=== PATIENT | female | born 1960 | race Caucasian/White ===

== ENCOUNTER 2017-03-18 18:04 | Emergency (ER) | payer MEDICARE, OTHER ==
[~2017-03-18] VITALS: Ht 167.6 cm; Wt 59.0 kg
[~2017-03-18 18:04] MED LIST: LORA1TAB82 PO; MECL-102 PO
[2017-03-18] MEDS ORDERED: IV NS 0.9% 1,000 ML ONE (18:17)
--- NOTE | 2017-03-18 18:26 | NUR ---
[address]IBRA [address] DUE TO ETOH-- PATIENT IS AAO3, APPEARS IN NO APPARENT DISTRESS, RESPIRATION EVEN AND UNLABORED. NO SOB. SKIN IS WARM TO TOUCH AND NON DIAPHORETIC. AFEBRILE. VSS.
--- NOTE | 2017-03-18 18:27 | NUR ---
IV ACCESSED TO LAC 20. BLOOD SAMPLE SENT TO LAB
[2017-03-18] MEDS ORDERED: IV NS 0.9% 1,000 ML BAG IV ONE (18:30)
[2017-03-18 18:42] LABS: BASOPHILS # (AUTO) 0.1 /CMM (0.0-0.2); BASOPHILS % (AUTO) 1.3 % (0.0-2.0); EOSINOPHILS # (AUTO) 0.4 /CMM (0.0-0.7); EOSINOPHILS % (AUTO) 8.1 % (0.0-6.0); HEMATOCRIT 42 % (33-45); HEMOGLOBIN 14.3 g/dL (11.5-14.8); LYMPHOCYTES # (AUTO) 2.1 /CMM (0.8-4.8); LYMPHOCYTES % (AUTO) 37.4 % (20.0-44.0); MEAN CORPUSCULAR HEMOGLOBIN 37 PG (26.0-33.0); MEAN CORPUSCULAR HGB CONC 34 g/dl (31.0-36.0); MEAN CORPUSCULAR VOLUME 107 fL (82-100); MONOCYTES # (AUTO) 0.4 /CMM (0.1-1.30); NEUTROPHILS # (AUTO) 2.5 /CMM (1.8-8.9); NEUTROPHILS % (AUTO) 45.2 % (43.0-81.0); PLATELET COUNT (AUTO) 184 /CMM (150-450); RDW COEFFICIENT OF VARIATION 12.5 (11.5-15.0); RED BLOOD CELL COUNT(AUTO) 3.91 MIL/uL (4.0-5.2); WHITE BLOOD COUNT (AUTO) 5.5 K/uL (4.3-11.0)
[2017-03-18 18:54] LABS: CALCIUM, SERUM 8.5 mg/dL (8.5-10.1); CREATININE 0.7 mg/dL (0.6-1.3); POTASSIUM 3.5 mmol/L (3.5-5.1)
[2017-03-18 18:57] LABS: INR 1.1 (0.87-1.13); PROTHROMBIN TIME 11.5 SECS (9.5-12.7)
[2017-03-18 18:59] LABS: ALBUMIN 3.5 g/dL (3.4-5.0); BILIRUBIN,DIRECT 0.1 mg/dL (0.0-0.2); BILIRUBIN,TOTAL 0.4 mg/dL (0.2-1.0); TOTAL PROTEIN, SERUM 6.7 g/dL (6.4-8.2)
[2017-03-18 22:12] VITALS: BP 112/78
--- NOTE | 2017-03-18 22:12 | NUR ---
IV removed. Catheter intact and site benign. Pressure and 4x4 applied to site. No bleeding noted.Patient discharged to home in stable condition. Written and verbal after care instructions given. Patient verbalizes understanding of instruction.
[2017-03-19 00:58] LABS: APPEARANCE,URINE CLEAR (CLEAR); BILIRUBIN,URINE NEGATIVE (NEGATIVE); BLOOD, URINE NEGATIVE Ery/uL (NEGATIVE); COLOR,URINE YELLOW (YELLOW); KETONES,URINE NEGATIVE (NEGATIVE); LEUKOCYTE ESTERASE ,URINE NEGATIVE (NEGATIVE); NITRITE, URINE NEGATIVE (NEGATIVE); PROTEIN,URINE NEGATIVE (NEGATIVE); UGLUCOSE NEGATIVE (NEGATIVE); UROBILINOGEN,URINE 0.2 EU/dL (0.2)
--- NOTE | 2017-03-19 05:00 | NUR ---
PT OK TO DISCHARGE PER DR STANTON. IV removed. Catheter intact and site benign. Pressure and 4x4 applied to site. No bleeding noted.Patient discharged to home in stable condition. Written and verbal after care instructions given. Patient verbalizes understanding of instruction.Patient is awake and alert to self, day, and place. PT ambulatory with a steady gait
== END 2017-03-19 05:00 | disposition home or self-care (01) ==
LOC: ER 18:07
DX: F10.129 Alcohol abuse with intoxication, unspecified (principal); F41.9 Anxiety disorder, unspecified; F32.9 Major depressive disorder, single episode, unspecified
CPT/HCPCS: 36415; 80048; 80076; 81001; 83690; 85025; 85730; 96360; 99284; A4606; G0480; J7030; 81000-TC; Z7610

== ENCOUNTER 2017-08-04 18:37 | Emergency (ER) | payer MEDICARE, OTHER ==
[~2017-08-04] VITALS: Ht 167.6 cm; Wt 59.0 kg
--- NOTE | 2017-08-04 18:42 | NUR ---
PT ANNIKA FROM THE STREETS TO ER BED 14. CAME IN W/ MULTIPLE COMPLAINTS. SOB, L SIDE RIB AREA PAIN. ALSO C/O BLOOD IN THE STOOL X 1 MONTH. PLACED ON MONITOR. AWAITING MD TAO.
--- NOTE | 2017-08-04 18:50 | NUR ---
[facility] AT BEDSIDE FOR EVAL.
--- NOTE | 2017-08-04 19:13 | NUR ---
PT TO RADIOLOGY FOR CHEST XRAY.
--- NOTE | 2017-08-04 20:30 | NUR ---
Patient discharged to home in stable condition. Written and verbal after care instructions given. Patient verbalizes understanding of instruction.
[2017-08-04 20:31] VITALS: BP 121/77
== END 2017-08-04 20:31 | disposition home or self-care (01) ==
LOC: ER 18:41
DX: S20.219A Contusion of unspecified front wall of thorax, initial encounter (principal); F10.10 Alcohol abuse, uncomplicated; F32.9 Major depressive disorder, single episode, unspecified; F41.9 Anxiety disorder, unspecified; Z59.0 Homelessness; Z86.73 Personal history of transient ischemic attack (TIA), and cerebral infarction without residual deficits; Z90.710 Acquired absence of both cervix and uterus; Z85.43 Personal history of malignant neoplasm of ovary; X58.XXXA Exposure to other specified factors, initial encounter; Y93.84 Activity, sleeping; Y92.89 Other specified places as the place of occurrence of the external cause; Y99.9 Unspecified external cause status
CPT/HCPCS: 71100; 99284; A4606; Z7610